=== PATIENT | female | born 1995 | race Caucasian/White ===

== ENCOUNTER 2021-04-18 21:52 | Emergency (ER) | payer MEDICAID ==
[2021-04-18] MEDS ORDERED: AMOXicillin 250 MG CAP ONE (23:15)
[2021-04-18] MEDS ORDERED: AMOXicillin 250 MG CAP PO SCH (23:30)
== END 2021-04-18 23:30 | disposition home or self-care (01) ==
LOC: BURERS 21:52
DX: H66.91 Otitis media, unspecified, right ear (principal); K08.89 Other specified disorders of teeth and supporting structures; I10 Essential (primary) hypertension; F17.210 Nicotine dependence, cigarettes, uncomplicated
CPT/HCPCS: 99282